=== PATIENT | male | born 1930 | race Caucasian/White ===

== ENCOUNTER 2020-09-14 14:07 | Emergency (ER) | payer MEDICARE, BC ==
[~2020-09-14] VITALS: Ht 162.6 cm; Wt 48.2 kg
--- NOTE | 2020-09-14 14:34 | PHYS DOC ---
General Adult EDM: Chief Complaint: SHORTNESS OF BREATH HPI: HPI: 89-year-old male brought in by EMS for dyspnea. Per EMS report he was short of breath, feeling member called EMS but patient was initially refusing transport until he was able to be convinced to come out. Patient is on baseline 4 L nasal cannula. States he feels fine now. 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 Patient states he has a history of a "bad heart" but is unable to give specifics. Has a nebulizer at home and inhalers but did not try using them prior to calling EMS. Patient denied any chest pain, lightheadedness, fevers. Has multiple members in the household who were diagnosed with Covid and are the end of their quarantine. Review of Systems: Review of Systems: All other systems within normal limits except for as noted in the HPI Allergies: Allergies: Allergies Coded Allergies Type Severity Reaction Last Updated Verified Penicillins Allergy Unknown 09/14/20 Yes Sulfa (Sulfonamide Antibiotics) Allergy Unknown 09/14/20 Yes tetracycline Allergy Unknown 09/14/20 Yes Physical Exam: PE: Constitutional: Well developed, well nourished, no acute distress, non-toxic appearance. [] HENT: Normocephalic, atraumatic, bilateral external ears normal, oropharynx moist, no oral exudates, nose normal. [] Eyes: PERRLA, EOMI, conjunctiva normal, no discharge. [] Neck: Normal range of motion, no tenderness, supple, no stridor. [] Cardiovascular:Heart rate regular rhythm, no murmur [] Lungs & Thorax: Bilateral breath sounds clear to auscultation [] Abdomen: Bowel sounds normal, soft, no tenderness, no masses, no pulsatile masses. [] Skin: Warm, dry, no erythema, no rash. [] Back: No tenderness, no CVA tenderness. [] Extremities: No tenderness, no cyanosis, no clubbing, ROM intact, no edema. [] Neurologic: Alert and oriented X 3, normal motor function, normal sensory function, no focal deficits noted. [] Psychologic: Affect normal, judgement normal, mood normal. [] EKG: EKG: Atrial fibrillation with PACs, heart rate 123 bpm, no ST elevation depression. Normal axis, no ectopy[] Radiology/Procedures: Radiology/Procedures: AP chest. HISTORY: Dyspnea AP view was taken of the chest. Heart is normal in size. There is atherosclerotic change in the aorta. There are emphysematous changes suggesting chronic obstructive pulmonary disease. There are multiple small calcifications which appear chronic. I do not have an old study for comparison. There are no acute infiltrates. IMPRESSION: 1. COPD. 2. No acute infiltrates. [] Heart Score: C/O Chest Pain: N/A Risk Factors: Risk Factors: DM, Current or recent (<one month) smoker, HTN, HLP, family history of CAD, obesity. Risk Scores: Score 0 - 3: 2.5% MACE over next 6 weeks - Discharge Home Score 4 - 6: 20.3% MACE over next 6 weeks - Admit for Clinical Observation Score 7 - 10: 72.7% MACE over next 6 weeks - Early Invasive Strategies Course & Med Decision Making: Course & Med Decision Making Pertinent Labs and Imaging studies reviewed. (See chart for details) Patient in A. fib and already is on Cardizem. [facility] Has occasional episodes of increased heart rate to the 140s up to 150 but patient is asymptomatic and heart rate quickly dropped back to below 110. Per patient and family's difficult ascertain whether medications he is on. We have no prior records here. Discussed with hospitalist who will accept to monitor and increase Cardizem. Patient was initially agreeable to staying inpatient. Notify the patient 1 to leave AMA due to some troubles at home and concern for his daughter's wellbeing. While discussed with the hospitalist and planning to increase his diltiazem the new prescription patient left prior to being able to be given a new prescription. Patient did initially agree to follow-up with the [facility] and his primary care provider [] Eli Disclaimer: Eli Disclaimer: This electronic medical record was generated, in whole or in part, using a voice recognition dictation system. Departure Departure: Impression: Primary Impression: Dyspnea Additional Impressions: COPD (chronic obstructive pulmonary disease) Paroxysmal atrial fibrillation with rapid ventricular response Disposition: AMA/ELOPED/LWBS Condition: GUARDED Patient Instructions: Nebulizer, Using a Additional Instructions: Follow-up with your vac press operator for evaluation of her atrial fibrillation medications. Use your inhalers and nebulizer when explaining shortness of breath SAPPHIRE HERNANDEZ MD Sep 14, 2020 14:34
--- NOTE | 2020-09-14 15:06 | RAD ---
AP chest. HISTORY: Dyspnea AP view was taken of the chest. Heart is normal in size. There is atherosclerotic change in the aorta . There are emphysematous changes suggesting chronic obstructive pulmonary disease. There are multipl e small calcifications which appear chronic. I do not have an old study for comparison. There are no acute infiltrates. IMPRESSION: 1. COPD. 2. No acute infiltrates. Electronically signed by: Esa Champion MD (09/14/2020 3:04 PM) [id number]
[2020-09-14 15:10] LABS: BASO % 0 % (0-3); EOS % 0 % (0-3); HEMOGLOBIN 15.8 g/dL (13.0-17.5); LYMPH # 0.8 x10^3/uL (1.0-4.8); LYMPH % 14 % (24-48); MEAN CORPUSCULAR HEMOGLOBIN 31 pg (25-35); MEAN CORPUSCULAR HGB CONC 33 g/dL (31-37); MEAN CORPUSCULAR VOLUME 94 fL (79-100); MONO # 0.6 x10^3/uL (0.0-1.1); MONO % 12 % (0-9); NEUT # 4.1 x10^3uL (1.8-7.7); NEUT % 75 % (31-73); PLATELET COUNT 305 x10^3/uL (140-400); RED BLOOD COUNT 5.13 x10^6/uL (4.30-5.70); RED CELL DISTRIBUTION WIDTH 13.3 % (11.5-14.5); WHITE BLOOD COUNT 5.5 x10^3/uL (4.0-11.0)
--- NOTE | 2020-09-14 15:13 | EKG ---
[address] [address] Test Date: 2020-09-14 Test Time: 14:24:10 Pat Name: MAGUI LOVELL Department: Room: Gender: M Palliative Nurse: NAIMA : 1930 Requested By: SAPPHIRE HERNANDEZ Order Number: [id number] Reading MD: Measurements Intervals [place] Rate: 123 P: SD: QRS: 71 QRSD: 92 T: 61 QT: 292 QTc: 423 Interpretive Statements IRREGULAR RHYTHM, NO P-WAVE FOUND LOW LIMB LEAD VOLTAGE NO SPECIFIC ECG ABNORMALITIES RI6.02 No previous ECG available for comparison
[2020-09-14 15:17] LABS: CALCIUM 9.2 mg/dL (8.5-10.1); CREATININE 0.9 mg/dL (0.7-1.3); GFR 79.6; POTASSIUM 4.2 mmol/L (3.5-5.1)
[2020-09-14 15:24] LABS: ALBUMIN 3.5 g/dL (3.4-5.0); ALBUMIN/GLOBULIN RATIO 0.9 (1.0-1.7); TOTAL BILIRUBIN 0.6 mg/dL (0.2-1.0); TOTAL PROTEIN 7.2 g/dL (6.4-8.2)
[2020-09-14] MEDS ORDERED: DEXAMETHASONE SOD PHOS 10 MG/ML VIAL. IVP ONE (15:30)
[2020-09-14] MEDS ORDERED: IV NORMAL SALINE 500ML 500 ML IV ONE (15:30)
[2020-09-14 17:40] VITALS: BP 106/57
== END 2020-09-14 17:56 | disposition left against medical advice (07) ==
LOC: ER 14:07
DX: J44.9 Chronic obstructive pulmonary disease, unspecified (principal); I48.0 Paroxysmal atrial fibrillation; Z88.0 Allergy status to penicillin; Z88.1 Allergy status to other antibiotic agents; Z88.2 Allergy status to sulfonamides
CPT/HCPCS: 36415; 71045; 80053; 82803; 83880; 84484; 85025; 93005; 96361; 96374; 99285; J1100; J7040

== ENCOUNTER 2021-10-31 14:31 | Emergency (ER) | payer MEDICARE, BC ==
[~2021-10-31] VITALS: Ht 162.6 cm; Wt 48.2 kg
[2021-10-31 15:06] VITALS: BP 117/67
[2021-10-31] MEDS ORDERED: HYDR28OI2 TP (15:16)
--- NOTE | 2021-10-31 15:16 | PHYS DOC ---
Past History Past Medical History: COPD Past Surgical History: Tonsillectomy Alcohol Use: None General Adult EDM: Chief Complaint: SKIN PROBLEM HPI: HPI: Patient is an 89-year-old male who presents to the emergency department today for a "rash" that started 2 weeks ago. Patient is a poor historian is unsure where the rash started but reports that he does have this rash EH and his daughter also has similar rash. He has been applying a topical steroid cream without relief. He denies any pain, fever, nausea, vomiting. Review of Systems: Review of Systems: Constitutional: See HP GI: See HPI Musculoskeletal: See HPI Integument: See HPI Allergies: Allergies: Allergies Coded Allergies Type Severity Reaction Last Updated Verified Penicillins Allergy Unknown 09/14/20 Yes Sulfa (Sulfonamide Antibiotics) Allergy Unknown 09/14/20 Yes tetracycline Allergy Unknown 09/14/20 Yes Physical Exam: PE: Constitutional: Well developed, well nourished, no acute distress, non-toxic appearance. [] HENT: Normocephalic, atraumatic, bilateral external ears normal, oropharynx moist, no oral exudates, nose normal. [] Eyes: PERRL, EOMI, conjunctiva normal, no discharge. [] Neck: Normal range of motion, no tenderness, supple, no stridor. [] Cardiovascular: Normal peripheral perfusion Lungs & Thorax: Increased work of breathing due to COPD, no respiratory distress Abdomen: Soft and flat Skin: Warm, dry, erythematous papular rash scattered to patient's right and left forearm, left lower leg and right side of his abdomen consistent with a possible insect bite Back: No tenderness, normal range of motion Extremities: No tenderness, no cyanosis, no clubbing, ROM intact, no edema. [] Neurologic: Alert and oriented X 3, normal motor function, normal sensory function, no focal deficits noted. [] Psychologic: Affect normal, judgement normal, mood normal. [] EKG: EKG: [] Radiology/Procedures: Radiology/Procedures: [] Heart Score: C/O Chest Pain: N/A Risk Factors: Risk Factors: DM, Current or recent (<one month) smoker, HTN, HLP, family history of CAD, obesity. Risk Scores: Score 0 - 3: 2.5% MACE over next 6 weeks - Discharge Home Score 4 - 6: 20.3% MACE over next 6 weeks - Admit for Clinical Observation Score 7 - 10: 72.7% MACE over next 6 weeks - Early Invasive Strategies Course & Med Decision Making: Course & Med Decision Making Pertinent Labs and Imaging studies reviewed. (See chart for details) [] Patient presents to the emergency department for rash. The rash appears to be similar to an insect bite. It is not painful. There is no vesicular lesions. Rash is itchy and daughter has similar rash. Patient will be treated with a topical steroid cream he is advised to take Benadryl at home for the itching. I discussed with patient all findings and diagnostic testing as well as the need to follow-up with PCP for further evaluation and treatment or return to the ER if any new or worsening symptoms. Strict return precautions were also discussed at length. Patient voiced understanding and agreement with the plan. Patient is hemodynamically stable at the time of disposition. Dragon Disclaimer: Dragon Disclaimer: This electronic medical record was generated, in whole or in part, using a voice recognition dictation system. Departure Departure: Impression: Primary Impression: Insect bite Qualified Codes: W57.XXXA - Bitten or stung by nonvenomous insect and other nonvenomous arthropods, initial encounter Referrals: MITESH OTOOLE MD (PCP) Patient Instructions: Insect Bite Additional Instructions: You were seen in the emergency department today for rash. The rash is consis tent with that with insect bites. You are being discharged home with a topical steroid use this as directed and you can take Benadryl for itching. Follow-up with your primary care provider tomorrow regarding your ER visit. Return to the emergency department if you develop worsening of your rash, painful rash, high fevers refractory to treatment, severe joint pain, intractable nausea or vomiting. Scripts Hydrocortisone Acetate (HYDROCORTISONE) 28 Gm Oint...g. 28 GM TP BID for rash for 7 Days, #1 MISC 0 Refills Prov: JACEK MONTES APRN 10/31/21 JACEK MONTES APRN Oct 31, 2021 15:16
== END 2021-10-31 15:27 | disposition home or self-care (01) ==
LOC: ER 14:31
DX: S50.862A Insect bite (nonvenomous) of left forearm, initial encounter (principal); S50.861A Insect bite (nonvenomous) of right forearm, initial encounter; S80.862A Insect bite (nonvenomous), left lower leg, initial encounter; S30.861A Insect bite (nonvenomous) of abdominal wall, initial encounter; J44.9 Chronic obstructive pulmonary disease, unspecified; Z88.0 Allergy status to penicillin; Z88.2 Allergy status to sulfonamides; Z88.1 Allergy status to other antibiotic agents; W57.XXXA Bitten or stung by nonvenomous insect and other nonvenomous arthropods, initial encounter; Y93.89 Activity, other specified; Y92.89 Other specified places as the place of occurrence of the external cause; Y99.8 Other external cause status
CPT/HCPCS: 99283

== ENCOUNTER 2021-11-18 12:58 | Emergency (ER) | payer MEDICARE, BC ==
[~2021-11-18] VITALS: Ht 160 cm; Wt 46.1 kg
[~2021-11-18 12:58] MED LIST: HYDR28OI2 TP
--- NOTE | 2021-11-18 13:52 | PHYS DOC ---
Past History Past Medical History: COPD Additional Past Medical Histor: irregular heart rhythm Past Surgical History: Appendectomy, Tonsillectomy Alcohol Use: Rarely Adult General Chief Complaint Chief Complaint: MECHANICAL FALL HPI HPI Patient is a 89 year old male who presents with complaint of left wrist pain and left-sided rib pain. The patient had an accidental fall from his bed last night at approximately 2330. The patient states that he tried to catch himself with his left hand but fell onto his left wrist and left side of his chest. Did not hit head or lose consciousness. The patient states today he is having worsening pain in the left wrist and is also having pain along the left side of his chest. Patient states that the pain in the left wrist worsens with movement. Denies loss of feeling or color in the left hand. Patient notes that the pain along the left side of his chest worsens when he takes a deep breath. Denies headache, vision changes, unilateral weakness, or difficulty with speech or swallowing. Review of Systems Review of Systems Constitutional: Denies fever or chills [] Eyes: Denies change in visual acuity, redness, or eye pain [] HENT: Denies nasal congestion or sore throat [] Respiratory: Denies cough or shortness of breath [] Cardiovascular: Denies chest pain or edema [] GI: Denies abdominal pain, nausea, vomiting, bloody stools or diarrhea [] : Denies dysuria or hematuria [] Musculoskeletal: Positive for left hip pain, denies back pain or joint swelling [] Integument: Denies pallor or wound [] Neurologic: Denies headache, focal weakness or sensory changes [] All other systems were reviewed and found to be within normal limits, except as documented in this note. Allergies Allergies Allergies Coded Allergies Type Severity Reaction Last Updated Verified Penicillins Allergy Unknown 11/18/21 Yes Sulfa (Sulfonamide Antibiotics) Allergy Unknown 11/18/21 Yes tetracycline Allergy Unknown 11/18/21 Yes Physical Exam Physical Exam Constitutional: Alert, afebrile, appears in mild discomfort. [] HENT: Normocephalic, atraumatic, bilateral external ears normal, oropharynx moist, no oral exudates, nose normal. [] Eyes: PERRLA, EOMI, conjunctiva normal, no discharge. [] Neck: Normal range of motion, no tenderness, supple, no stridor. [] Cardiovascular:Heart rate regular rhythm, no murmur [] Lungs & Thorax: Bilateral breath sounds clear to auscultation, tenderness palpation along left lateral rib cage at the anterior axillary line, no visualized ecchymosis or swelling, no palpable crepitus [] Abdomen: Bowel sounds normal, soft, no tenderness, no masses, no pulsatile masses. [] Skin: Warm, dry, no erythema, no rash. [] Back: No tenderness, no CVA tenderness. [] Extremities: No obvious deformity to left wrist, mild joint swelling noted, tenderness to palpation on dorsum of left wrist, no cyanosis, no clubbing, mild decrease in flexion and extension at the wrist secondary to pain, no edema. [] Neurologic: Alert and oriented X 3, normal motor function, normal sensory function, no focal deficits noted. [] Current Patient Data Vital Signs Vital Signs Date Time Temp Pulse Resp B/P (MAP) Pulse Ox O2 Delivery O2 Flow Rate FiO2 11/18/21 13:14 97.9 101 24 113/70 (84) 95 Nasal Cannula 3.0 Lab Results Not performed EKG EKG Not performed [] Radiology/Procedures Radiology/[place] [address] IMAGING REPORT Signed PATIENT: MAGUI LOVELL ACCOUNT: [id number] : 1930 LOCATION: ER AGE: 89 SEX: M EXAM STATUS: REG ER ORD. PHYSICIAN: EMILIANA VINCENT MD REASON: fall last night from bed, left wrist pain PROCEDURE: WRIST 3V LEFT EXAMINATION: XR LT WRIST 3VIEWS. HISTORY: 89 years Male Reason: fall last night from bed, left wrist pain COMPARISON: None. FINDINGS: No fracture, dislocation or radiopaque foreign body. Subchondral sclerotic changes are seen at the carpometacarpal joint at the base of the thumb. There is a 2 mm metallic foreign body projecting at the skin over the subcutaneous tissues at the ulnar aspect of the wrist. IMPRESSION: 2 mm metallic foreign body projects at the left ulnar aspect of wrist at the skin over the subcutis tissues. No fracture seen. Electronically signed by: Ayan Hayward MD (11/18/2021 3:20 PM) [id number] DICTATED AND SIGNED BY: AYAN HAYWARD MD DATE: 11/18/211517 CC: EMILIANA VINCENT MD; MITESH OTOOLE MD ~ [place] [address] IMAGING REPORT Signed PATIENT: MAGUI LOVELL ACCOUNT: [id number] : 1930 LOCATION: ER AGE: 89 SEX: M EXAM STATUS: REG ER ORD. PHYSICIAN: EMILIANA VINCENT MD REASON: fall last night from bed, left sided rib pain PROCEDURE: RIBS LEFT AND PA CHEST EXAMINATION: XR RIBS MIN 3 VIEWS LT W/PA CHEST. HISTORY: 89 years Male fall last night from bed, left sided rib pain . COMPARISON: September 14, 2020. Findings: Left rib views demonstrate no fracture identified. Chest radiograph demonstrate numerous tiny calcified granulomas similar to the previous exam with pulmonary hyperinflation. No focal infiltrate. The heart size is normal. There is no effusion or pneumothorax. The mediastinum and marty appear unremarkable. Impression: No acute process. Electronically signed by: Ayan Hayward MD (11/18/2021 3:24 PM) [id number] DICTATED AND SIGNED BY: AYAN HAYWARD MD DATE: 11/18/211519 CC: EMILIANA VINCENT MD; MITESH OTOOLE MD ~ [] Heart Score C/O Chest Pain: No Risk Factors: Risk Factors: DM, Current or recent (<one month) smoker, HTN, HLP, family history of CAD, obesity. Risk Scores: Risk Factors: DM, Current or recent (<one month) smoker, HTN, HLP, family history of CAD, obesity. Course & Med Decision Making Course & Med Decision Making Pertinent Labs and Imaging studies reviewed. (See chart for details) Patient's x-ray imaging shows no acute fractures or lung injury. Radiopaque foreign body was found in the left wrist. Patient has a palpable metal foreign body under the skin that is nontender and is not causing any acute swelling or pain symptoms at this time. Suspect that this is a longstanding foreign body under the skin. Do not recommend foreign body retrieval in the emergency department but advised to continue observation of this area for any changes including increasing swelling, redness, or pain. Advised use of low-dose ibuprofen for 3 to 5 days for anti-inflammatory treatment of left wrist and chest wall pain. Recommend follow-up with primary doctor in that time for reevaluation and recommend return to the emergency department for any worsening symptoms. Patient voiced understanding and in agreement with treatment plan. [] Dragon Disclaimer Dragon Disclaimer This electronic medical record was generated, in whole or in part, using a voice recognition dictation system. Departure Departure: Impression: Primary Impression: Left wrist sprain Additional Impression: Chest wall contusion Disposition: HOME / SELF CARE / HOMELESS Condition: STABLE Referrals: MITESH OTOOLE MD (PCP) Patient Instructions: Chest Contusion, Wrist Sprain with [facility] Additional Instructions: Follow-up with Dr. Otoole in the next 5 days for reevaluation. Return to the emergency department for any worsening symptoms. Problem Qualifiers Primary Impression: Left wrist sprain Encounter type: initial encounter Qualified Codes: S63.502A - Unspecified sprain of left wrist, initial encounter Additional Impression: Chest wall contusion Encounter type: initial encounter Laterality: left Qualified Codes: S20.212A - Contusion of left front wall of thorax, initial encounter EMILIANA VINCENT MD November 18, 2021 13:52
--- NOTE | 2021-11-18 15:22 | RAD ---
EXAMINATION: XR LT WRIST 3VIEWS. HISTORY: 89 years Male Reason: fall last night from bed, left wrist pain COMPARISON: None. FINDINGS: No fracture, dislocation or radiopaque foreign body. Subchondral sclerotic changes are seen at the carpometacarpal joint at the base of the thumb. There is a 2 mm metallic foreign body projecting at the skin over the subcutaneous tissues at the ulnar aspect of the wrist. IMPRESSION: 2 mm metallic foreign body projects at the left ulnar aspect of wrist at the skin over the subcutis t issues. No fracture seen. Electronically signed by: Faizan Hayward MD (11/18/2021 3:20 PM) [id number]
--- NOTE | 2021-11-18 15:27 | RAD ---
EXAMINATION: XR RIBS MIN 3 VIEWS LT W/PA CHEST. HISTORY: 89 years Male fall last night from bed, left sided rib pain . COMPARISON: September 14, 2020. Findings: Left rib views demonstrate no fracture identified. Chest radiograph demonstrate numerous ti ny calcified granulomas similar to the previous exam with pulmonary hyperinflation. No focal infiltra te. The heart size is normal. There is no effusion or pneumothorax. The mediastinum and marty appear unremarkable. Impression: No acute process. Electronically signed by: Faizan Hayward MD (11/18/2021 3:24 PM) [id number]
[2021-11-18 16:05] VITALS: BP 98/44
== END 2021-11-18 16:05 | disposition home or self-care (01) ==
LOC: ER 12:58
DX: S63.502A Unspecified sprain of left wrist, initial encounter (principal); S20.212A Contusion of left front wall of thorax, initial encounter; K21.9 Gastro-esophageal reflux disease without esophagitis; Z88.0 Allergy status to penicillin; Z88.2 Allergy status to sulfonamides; Z88.1 Allergy status to other antibiotic agents; W06.XXXA Fall from bed, initial encounter; Y93.89 Activity, other specified; Y92.89 Other specified places as the place of occurrence of the external cause; Y99.8 Other external cause status
CPT/HCPCS: 71101; 73110; 99284